=== PATIENT | male | born 1995 | race Hispanic/Latino ===

== ENCOUNTER 2016-08-09 17:39 | Emergency (ER) | payer SELFPAY ==
[2016-08-09] MEDS ORDERED: Cephalexin 500 MG CAP ONE (17:44)
[2016-08-09] MEDS ORDERED: cefTRIAXone\\ROCEPHIN 1 GM VIAL ONE (17:44)
[2016-08-09] MEDS ORDERED: Sulfameth/Trimethoprim DS 800-160mg TAB ONE (17:44)
[2016-08-09] MEDS ORDERED: traMADol HCl 50 MG TAB ONE (18:01)
== END 2016-08-09 18:05 ==
LOC: MADERS 17:39
DX: L02.01 Cutaneous abscess of face (principal); L03.211 Cellulitis of face
CPT/HCPCS: 87070; 87077; 87186; 87205; 96372; J0696